=== PATIENT | male | born 1965 | race Caucasian/White ===

== ENCOUNTER 2016-12-12 10:48 | Day surgery (SDC) | payer OTHER ==
--- NOTE | 2016-12-12 08:59 | HP ---
PROCEDURE DATE: 12/12/16 HISTORY OF PRESENT ILLNESS: The patient is a 51 y/o gentleman in need of screening colonoscopy. Family history of colon cancer in a grandparent as well as father had polyps. He denies any bloody stools or change in bowel movements. In need of screening colonoscopy. PAST MEDICAL HISTORY: Had some arthritis. CURRENT MEDICATIONS: Include Feldene, [id number] fish oil and multivitamins and ginseng, Panax according to the patient. ALLERGIES: NKDA. PAST SURGICAL HISTORY: Tonsils, has had a knot removed from his leg, had cholecystectomy, knee surgery, vasectomy, had inguinal hernia repair in the past. FAMILY HISTORY: Colon cancer. SOCIAL HISTORY: No smoking. Does drink 2-4 beers a week. REVIEW OF SYSTEMS: 10 systems reviewed. No chest pain or palpitations. No bloody stools. No change in bowel movements. PHYSICAL EXAMINATION: GENERAL: No acute distress. HEENT: Sclerae nonicteric. NECK: No JVD. CHEST: Clear to auscultation. CVS: Regular rate and rhythm. ABDOMEN: Soft, nontender. No peritoneal signs. EXTREMITIES: No significant edema. NEURO: A&O, moving extremities symmetrically. No gross motor deficits noted. RECTAL: Deferred until time of endoscopy exam. IMPRESSION: 50 YEAR OLD GENTLEMAN IN NEED OF SCREENING COLONOSCOPY. FEEL HIS IS A CANDIDATE. Shown the risk sheet and explained the procedure in detail. Risks and benefits explained in detail, but not limited to, bleeding; infection; risk of bowel injury or perforation possibly requiring open procedure; small risk of missed or nondiagnosis or incomplete exam possibly requiring barium enema or other studies or procedures; general risk of anesthesia or sedation; risk of bowel prep; postoperative risks of nausea, vomiting, or cramping, but not limited to. He understands and agrees to the planned procedure. Will proceed with colonoscopy as an outpatient.
[~2016-12-12 10:48] MED LIST: DEMEROL 50 MG IV ONE; MORPHINE SULFATE 10 MG/ML IV ONE; VERSED 5 MG/5 ML IV ONE; Zofran 4 MG/2 ML VIAL IV ONE
[2016-12-12] MEDS ORDERED: Sodium Chloride 0.9% 1000 ML 1,000 ML ONE ×2 (11:03→13:23)
[2016-12-12] MEDS ORDERED: Sodium Chloride 0.9% 1000 ML 1,000 ML IV SCH (11:15)
[2016-12-12 14:41] VITALS: O2SAT 97
[2016-12-12 15:06] VITALS: BP 98/62; PULSE 55
--- NOTE | 2016-12-12 16:04 | OP ---
SURGERY DATE: 12/12/16 SURGERY TIME: 1310 PREOPERATIVE DIAGNOSIS: 1. NEED FOR SCREENING COLONOSCOPY. POSTOPERATIVE DIAGNOSIS: 1. POOR PREP LIMITING EXAM. 2. VERY TORTUOUS COLON. 3. FRIABLE RIGHT COLON. PATH PENDING TO EVALUATE FOR MICROSCOPIC COLITIS VS JUST PREP IRRITATION. 4. MILD DIVERTICULOSIS. 5. SMALL INTERNAL/EXTERNAL HEMRRHOIDS. PROCEDURE: 1. Colonoscopy to terminal ileum. 2. Retrograde ileoscopy. 3. Random cold biopsies right colon to evaluate for microscopic colitis. SURGEON: Dr. Joe To. ANESTHESIA: IV Demerol and Versed initially and then IV morphine and IV Versed. ESTIMATED BLOOD LOSS: Minimal. INDICATIONS: As noted above. Risks and benefits explained in detail, but not limited to. Consent obtained. DESCRIPTION OF PROCEDURE AND FINDINGS: The patient was taken to the OR on continuous pulse oximetry and intermittent BP monitoring. After official time-out, no disagreement in the planned procedure. He was incrementally sedated with IV Demerol and Versed. Slowly, carefully up through the poorly prepped colon. Very tortuous colon required incremental sedation and positioning on his back and external pressure. The scope was slowly carefully able to be passed around to the cecum and up in the terminal ileum. Retrograde ileoscopy was performed. The terminal ileum was grossly unremarkable. On withdrawal of the scope, again the poor prep did limit the exam for potentially small lesions in the colon. There was some friability in the right colon. Whether this was just simple prep irritation, cold biopsy was taken to evaluate for microscopic colitis as touched the colon and didn't want it to ooze. He had been on fish oil in the past, but had stopped a few days ahead of time. Cold biopsies were taken at a few locations, particularly in this right colon that was friable. Otherwise, there were no signs of any large polyps, masses, or obstructing lesions in withdrawal of the scope. He did have some mild diverticulosis in the left colon. Again, the prep did limit the exam for potentially small lesions. He did have some small internal/external hemorrhoids. There were no signs of any large polyps, masses, or obstructing lesions. The scope was withdrawn. The patient tolerated the procedure well. Findings discussed with the family out in the waiting area. Given the poor prep quality, recommend follow-up colonoscopy in 5 years.
== END 2016-12-12 15:15 | disposition home or self-care (01) ==
LOC: SDC 10:48
PROVIDERS: ATTEND Surgery
PROC: 0DJD8ZZ Inspection of Lower Intestinal Tract, Via Natural or Artificial Opening Endoscopic (ICD-10-PCS; principal; 2016-12-12)
PROC: 0DJD8ZZ Inspection of Lower Intestinal Tract, Via Natural or Artificial Opening Endoscopic (ICD-10-PCS; 2016-12-12)
PROC: 0DBE8ZX Excision of Large Intestine, Via Natural or Artificial Opening Endoscopic, Diagnostic (ICD-10-PCS; 2016-12-12)
DX: K57.90 Diverticulosis of intestine, part unspecified, without perforation or abscess without bleeding (principal); K64.4 Residual hemorrhoidal skin tags; K64.8 Other hemorrhoids; Z80.0 Family history of malignant neoplasm of digestive organs; M19.90 Unspecified osteoarthritis, unspecified site
CPT/HCPCS: 36415; 88305; J2175; J2250; J2270; J2405

== ENCOUNTER 2022-03-28 11:36 | Day surgery (SDC) | payer OTHER ==
--- NOTE | 2022-03-28 09:50 | HP ---
DATE OF SURGERY: 03/28/2022 HISTORY OF PRESENT ILLNESS: The patient is a 56-year-old who has family history of colon cancer. He had a prior colonoscopy with a little bit limited prep. He had a tortuous colon as well. PAST MEDICAL HISTORY: He denies any chronic illnesses. PAST SURGICAL HISTORY: Tonsillectomy. Cholecystectomy. Meniscus surgery. Knot removed from his leg in the past. MEDICATIONS: Piroxicam, multivitamins, fish oil. ALLERGIES: NKDA. FAMILY HISTORY: Grandfather with colon cancer. SOCIAL HISTORY: No smoking. He does drink two beers a week. REVIEW OF SYSTEMS: Fourteen systems reviewed. No chest pain or palpitations. Other systems negative or noncontributory as above and per preadmission questionnaire. PHYSICAL EXAMINATION: GENERAL: No acute distress. HEENT: Sclerae nonicteric. NECK: No JVD. CHEST: Equal excursion, nonlabored breathing. CVS: Regular rate and rhythm. ABDOMEN: Soft. No peritoneal signs. EXTREMITIES: No significant edema. NEURO: Alert, oriented, moving extremities symmetrically. RECTAL: Deferred timed to endoscopy exam. PSYCH: Appropriate mood and affect. IMPRESSION: Family history of colon cancer. He is in need of follow up screening colonoscopy. I feel he is a candidate. General risk of bleeding or infection, risk of bowel injury or perforation possibly requiring open procedure, risk of missed or nondiagnosis or incomplete exam possibly requiring barium enema, other studies or procedures, general risk of anesthesia or sedation, risk of bowel prep but not limited to, consent obtained. Will proceed with outpatient follow up screening colonoscopy under MAC anesthesia.
[2022-03-28] MEDS ORDERED: Lactated Ringers 1,000 ML IV SCH (12:00)
[2022-03-28] MEDS ORDERED: Lactated Ringers 1,000 ML IV ONE (12:01)
[2022-03-28] MEDS ORDERED: DIPRIVAN 200 MG/20 ML IV ONE ×2 (12:54→13:31)
[2022-03-28] MEDS ORDERED: Versed 2 MG/2 ML Injection ONE (12:54)
[2022-03-28 14:38] VITALS: BP 116/80; PULSE 57; O2SAT 94
--- NOTE | 2022-03-28 15:03 | OP ---
SURGERY DATE/TIME: 03/28/2022 1325 PREOPERATIVE DIAGNOSIS: Family history of colon cancer, need for screening colonoscopy. POSTOPERATIVE DIAGNOSES: 1) A few small scattered tiny diverticula. 2) Fair bowel prep. 3) Mild tortuous colon. 4) No evidence of any polyps or masses. PROCEDURES: Colonoscopy SURGEON: Dr. Joe To. ANESTHESIA: MAC. ESTIMATED BLOOD LOSS: Minimal. INDICATIONS: As noted above. Risks and benefits explained in detail but not limited to and consent obtained. DESCRIPTION OF PROCEDURE AND FINDINGS: The patient is taken to the endoscopy room. MAC anesthesia induced. After official time out and no disagreement with planned procedure, digital rectal exam did not reveal any rectal masses. Video colonoscope inserted and passed up through the slightly tortuous sigmoid, descending, transverse and ascending colon. With the external pressure from a couple different staff members, the scope was able to be passed to the cecum. Appendiceal orifice and valve well visualized and photo documented. The appendiceal orifice picture took but for some reason the cecal valve itself picture did not take very long. The scope is slowly and carefully withdrawn. He did have a little bit of liquidy stool in the colon just slightly limiting the exam for very tiny lesions. Otherwise fairly good prep, fair prep overall. The scope is slowly and carefully withdrawn over the next 8 minutes. There were no signs of any large polyps, masses or obstructing lesions. The patient tolerated the procedure well. There were no immediate complications. Findings discussed with the family out in the waiting area. Given the fact of his family history of colon cancer, it is felt best to follow up in five years with colonoscopy unless he has symptoms sooner. He can follow up in the office PRN since we did not biopsy at this time. He will follow up in the office in two weeks as needed only as we did not send any specimens off for path results.
== END 2022-03-28 14:45 | disposition home or self-care (01) ==
LOC: SDC 11:36
PROVIDERS: ATTEND Surgery
DX: Z12.11 Encounter for screening for malignant neoplasm of colon (principal); K57.30 Diverticulosis of large intestine without perforation or abscess without bleeding; K56.2 Volvulus; Z80.0 Family history of malignant neoplasm of digestive organs
CPT/HCPCS: 93005; J2250; J2704